=== PATIENT | female | born 1970 | race Caucasian/White ===

== ENCOUNTER 2020-12-06 17:24 | Emergency (ER) | payer BC ==
[2020-12-06 18:06] LABS: HEMOGLOBIN 13.9 gm/dl (12.3-15.3); RED BLOOD COUNT 5.2 M/UL (4.00-5.10); WHITE BLOOD COUNT 11.3 K/UL (4.5-11.0)
[2020-12-06 18:47] LABS: BUN/CREATININE RATIO 9 (0-10)
[2020-12-06] MEDS ORDERED: IBUPROFEN800 MG PO (21:37)
== END 2020-12-06 21:50 | disposition home or self-care (01) ==
LOC: ER1 17:24
DX: R10.2 Pelvic and perineal pain (principal); E11.9 Type 2 diabetes mellitus without complications; K21.9 Gastro-esophageal reflux disease without esophagitis
CPT/HCPCS: 80053; 81001; 83690; 85025; 85652; 86140; 96374; 96375; 99284; J1170; J2405; Q9967

== ENCOUNTER → 2021-03-05 | Outpatient (CLI) | payer BC ==
[~2021-03-05] MED LIST: IBUPROFEN800 MG PO
== END ==
LOC: MAMO 09:22
DX: Z12.31 Encounter for screening mammogram for malignant neoplasm of breast (principal)
CPT/HCPCS: 77063; 77067

== ENCOUNTER → 2021-03-23 | Outpatient (CLI) | payer BC | LOC: US 10:49 | DX: R92.8 Other abnormal and inconclusive findings on diagnostic imaging of breast (principal) | CPT/HCPCS: 76641-LT; 77065; G0279 ==

== ENCOUNTER → 2021-06-01 | Outpatient (CLI) | payer BC ==
[2021-06-01 13:00] LABS: BUN/CREATININE RATIO 12 (0-10)
== END ==
LOC: MO 09:54
DX: C50.412 Malignant neoplasm of upper-outer quadrant of left female breast (principal); N91.5 Oligomenorrhea, unspecified; Z80.3 Family history of malignant neoplasm of breast
CPT/HCPCS: 80053

== ENCOUNTER 2021-10-04 22:06 | Emergency (ER) | payer BC ==
[2021-10-04 22:28] LABS: HEMOGLOBIN 12.9 gm/dl (12.3-15.3); RED BLOOD COUNT 4.81 M/UL (4.00-5.10)
[2021-10-05] MEDS ORDERED: TORADOL 10 MG T10 MG PO (03:58)
[2021-10-05] MEDS ORDERED: ONDANSETRON ODT4 MG SL (03:58)
== END 2021-10-05 04:20 | disposition home or self-care (01) ==
LOC: ER1 22:06
PROVIDERS: Student in an Organized Health Care Education/Training Program
DX: N13.2 Hydronephrosis with renal and ureteral calculous obstruction (principal); D25.9 Leiomyoma of uterus, unspecified; E11.9 Type 2 diabetes mellitus without complications; Z85.3 Personal history of malignant neoplasm of breast; Z87.440 Personal history of urinary (tract) infections; Z79.84 Long term (current) use of oral hypoglycemic drugs
CPT/HCPCS: 80053; 81001; 83690; 85025; 87086; 96361; 96374; 99284; J1885